=== PATIENT | male | born 1955 | race Caucasian/White ===

== ENCOUNTER → 2018-06-30 | Day surgery (SDC) | payer BC ==
[2018-06-28 16:33] LABS: BASOPHILS # (AUTO) 0.1 (0.0-0.1); BASOPHILS % 1.1 % (0.0-1.0); EOSINOPHILS # (AUTO) 0.2 (0.0-0.4); EOSINOPHILS % 2.3 % (0.0-6.0); HEMATOCRIT 40.7 % (38.2-49.6); HEMOGLOBIN 13.9 g/dL (14.0-18.0); LYMPHOCYTES # (AUTO) 2.5 (1.0-3.2); LYMPHOCYTES % 30.2 % (18.0-39.1); MEAN CORPUSCULAR HEMOGLOBIN 31.9 pg (28-32); MEAN CORPUSCULAR HGB CONC 34.2 g/dL (31-35); MEAN CORPUSCULAR VOLUME 93.3 fL (81-99); MONOCYTES # (AUTO) 0.6 (0.2-0.8); MONOCYTES % 7.3 % (4.4-11.3); NEUTROPHILS # (AUTO) 4.8 (2.1-6.9); NEUTROPHILS % 58.7 % (38.7-80.0); PLATELET COUNT 232 x10e3/uL (140-360); RED BLOOD COUNT 4.36 x10e6/uL (4.3-5.7); RED CELL DISTRIBUTION WIDTH 12.4 % (11.7-14.4)
[~2018-06-30] MED LIST: AMLODIPINE BESYL5 MG PO; ATORVASTATIN CA20 MG PO; DIOVAN160 MG PO; FENTANYL CITRATE/PF 100MCG/2 ML INJ ONE; FEXOFENADINE H180 MG; GLUCAGON FOR INJ 1 MG VIAL ONE; HCTZ; HYDROCODON-ACE1 EA12; HYOSCYAMINE SULFATE 0.5 MG/ML INJ ONE; IMODIUM2 MG PO; METOCLOPRAMIDE HCL 10 MG/2ML VIAL ONE; METOPROLOL; MIDAZOLAM HCL 2 MG/2 ML VIAL ONE; PROPOFOL IV EMULSION 10 MG/ML 20 ML VIAL ONE; SOTALOL80 MG PO; XARELTO10 MG
[2018-06-30 16:35] VITALS: BP 128/78
[2018-07-01 14:41] LABS: C DIFFICILE TOXIN A&B AMP PROB NEGATIVE (NEGATIVE)
[2018-07-01 15:18] LABS: WBC,FECAL (FECAL LACTOFERRIN) POSITIVE (NEGATIVE)
--- NOTE | 2018-08-21 15:17 | Operative Report ---
DATE OF PROCEDURE: June 30, 2018 REFERRING PHYSICIAN: Dr. Jodie Foreman. PROCEDURE PERFORMED: Esophagogastroduodenoscopy with biopsies and colonoscopy with polypectomy. INDICATIONS FOR ESOPHAGOGASTRODUODENOSCOPY: History of heartburn, indigestion. INDICATIONS FOR COLONOSCOPY: Colorectal cancer screening. MEDICATION: Patient was done under MAC. Please see anesthesiologist's note. PROCEDURE: With patient in left lateral decubitus position, a flexible fiberoptic Olympus gastroscope was introduced into the esophagus under direct visualization without any difficulty. There were some tongues of velvety red mucosa were noted to extend to a maximum 4 to 5 cm from the GE junction. Biopsies were obtained four quadrants q.2 cm. The scope was then advanced with ease into the stomach traversing a small hiatal hernia. Mucosa overlying the antrum revealed some patchy erythema and moderate edema and biopsies were obtained and sent to stain for H. pylori. There was some nodularity noted in the body of the stomach and biopsies were obtained. Pylorus appeared to be of normal contour and shape, was intubated with ease, and the scope was advanced all the way to the 2nd portion of the duodenum. It was then withdrawn slowly and there was some scalloping of some of the duodenal folds and biopsies were obtained to rule out sprue. The scope was then withdrawn back into the stomach and retroflexed and mucosa overlying the fundus and the cardia appeared to be within normal limits. The scope was then straightened out. It was subsequently withdrawn. Patient tolerated procedure well. IMPRESSIONS 1. Rule out Emanuel's esophagus. 2. Hiatal hernia. 3. Gastritis, biopsied. Biopsies sent to stain for Helicobacter pylori. 4. Rule out sprue. PLAN: Follow up histology. Initiate Protonix 40 mg 1 p.o. q.a.m. a.c. Patient was then turned around and after adequate lubrication of the anal canal, a flexible fiberoptic Olympus colonoscope was inserted into the rectum with ease and advanced all the way to the cecum. Approximately 1.3-cm sessile polyp was noted in the cecum and that was removed per snare electrocautery and the polypectomy site was hemoclipped. The ileocecal valve was intubated and the scope was advanced into the terminal ileum. Biopsies were obtained. The scope was then withdrawn slowly. Some minimal diverticulosis was noted in the ascending colon and some patchy inflammatory changes were noted in the left colon. Two polyps were snared from the transverse colon. One polyp was hot biopsied from the descending colon. Two polyps were snared. One polyp was hot biopsied in the sigmoid colon. Some diverticular disease was noted in the sigmoid colon and the scope was then retroflexed into the distal rectum and small internal hemorrhoids were noted, none of which was actively bleeding. The scope was then straightened out. It was subsequently withdrawn. Patient tolerated the procedure well. IMPRESSIONS 1. Cecal polyp, approximately 1.3 cm in size, sessile, removed per snare electrocautery and polypectomy site was hemoclipped. 2. Transverse colon polyps x2, snared. 3. Mild patchy colitis, random biopsies were obtained. 4. Descending colon polyp x1, hot biopsied. 5. Sigmoid colon polyps x3, two snared and one hot biopsied. 6. Diverticulosis. 7. Internal hemorrhoids, none actively bleeding. PLAN: Follow up histology. Follow up stool studies. Initiate VSL #3 one p.o. daily and Bentyl 10 mg 1 p.o. t.i.d. Patient might benefit from a followup colonoscopy in 1 to 2 years. Job#: [id number] TA cc:MELANIE FOREMAN M.D.,
== END | disposition home or self-care (01) ==
LOC: OR 12:25
PROVIDERS: ATTEND Internal Medicine Gastroenterology
DX: Z12.11 Encounter for screening for malignant neoplasm of colon (principal); K29.50 Unspecified chronic gastritis without bleeding; K44.9 Diaphragmatic hernia without obstruction or gangrene; K21.0 Gastro-esophageal reflux disease with esophagitis; K22.70 Barrett's esophagus without dysplasia; D12.0 Benign neoplasm of cecum; D12.3 Benign neoplasm of transverse colon; K63.5 Polyp of colon; D12.5 Benign neoplasm of sigmoid colon; I10 Essential (primary) hypertension; I25.10 Atherosclerotic heart disease of native coronary artery without angina pectoris; R78.5 Finding of other psychotropic drug in blood; Z95.0 Presence of cardiac pacemaker; Z86.73 Personal history of transient ischemic attack (TIA), and cerebral infarction without residual deficits; Z79.01 Long term (current) use of anticoagulants; K57.30 Diverticulosis of large intestine without perforation or abscess without bleeding; K64.8 Other hemorrhoids
CPT/HCPCS: 36415; 43239; 45384; 45385; 83630; 83993; 85025; 87045; 87177; 87328; 87493; 93005; J1610; J1980; J2250; J2704; J2765; 45378

== ENCOUNTER → 2019-08-05 | Outpatient (CLI) | payer BC, MEDICARE ==
[~2019-08-05] MED LIST changes: -FENTANYL CITRATE/PF 100MCG/2 ML INJ ONE; -GLUCAGON FOR INJ 1 MG VIAL ONE; -HYOSCYAMINE SULFATE 0.5 MG/ML INJ ONE; -METOCLOPRAMIDE HCL 10 MG/2ML VIAL ONE; -MIDAZOLAM HCL 2 MG/2 ML VIAL ONE; -PROPOFOL IV EMULSION 10 MG/ML 20 ML VIAL ONE
--- NOTE | 2019-08-05 17:42 | Diagnostic Imaging Report ---
Scrotal ultrasound, 08/05/2019 Clinical History: Spermatocele of the epididymis Discussion: Sonographic evaluation of the scrotal contents is performed. In addition, color Doppler and spectral waveform analysis evaluations of the scrotal contents are obtained. The testes have homogeneous echotexture, without focal mass. The right testis measures 0.9 x 2.5 x 3.5 cm. The left testis measures 5.0 x 2.6 x 3.7 cm. There is no varicocele or hydrocele. On color Doppler evaluation, there is symmetric blood flow to both testes. The right epididymis measures 1.3 x 1.1 x 1.4 cm and contains an anechoic 0.2 x 0.2 x 0.2 cm structure. The left epididymis measures 1.2 x 1.3 x 1.2 cm and appears unremarkable. Impression: 0.2 x 0.2 x 0.2 cm right epididymal cyst. Otherwise, unremarkable ultrasound of the scrotum and testicles. Signed by: Mike Rojo MD on 08/05/2019 5:38 PM
== END ==
LOC: US 16:30
PROVIDERS: ATTEND Urology
DX: N43.40 Spermatocele of epididymis, unspecified (principal)
CPT/HCPCS: 76870; 93976

== ENCOUNTER → 2019-08-17 | Day surgery (SDC) | payer BC, MEDICARE ==
[~2019-08-17] MED LIST changes: +FENTANYL CITRATE/PF 100MCG/2 ML INJ ONE; -FEXOFENADINE H180 MG; +FEXOFENADINE H180 MG PO; +HYOSCYAMINE 0.125 MG TAB ONE; +IMODIUM PO; +MIDAZOLAM HCL 5 MG/ML VIAL ONE; +PANTOPRAZOLE SO40 MG PO; +PROPOFOL IV EMULSION 10 MG/ML 20 ML VIAL ONE; -XARELTO10 MG; +XARELTO10 MG PO
--- NOTE | 2019-08-18 00:31 | Operative Report ---
DATE OF PROCEDURE: 08/17/2019 SURGEON: Tanner Márquez MD PROCEDURE: Colonoscopy with polypectomy. INDICATIONS FOR COLONOSCOPY: Surveillance colonoscopy, personal history of colon polyps. MEDICATIONS: The patient was done under MAC. Please see anesthesiologist's note. PROCEDURE IN DETAIL: With the patient in left lateral decubitus position, a flexible fiberoptic Olympus colonoscope was inserted into the rectum with ease and advanced all the way to the cecum. The scope was then withdrawn slowly and mucosa overlying the cecum grossly appeared to be within normal limits. Prep overall unfortunately was suboptimal with retained stools pretty much throughout the right colon and minimally in the left colon. One polyp was hot biopsied from the ascending colon. Diverticular disease was scattered throughout the colon, but was more prominent in the left colon. Whatever was visualized of the transverse colon grossly appeared to be within normal limits. Other than for diverticulosis whatever was visualized of the descending colon appeared to be within normal limits. Two polyps were hot biopsied from the sigmoid colon. One polyp was snared from the rectum, hot snared. The scope was then retroflexed into the distal rectum and small internal hemorrhoids were noted, none of which was actively bleeding. The scope was then straightened out. It was subsequently withdrawn. The patient tolerated the procedure well. IMPRESSION: 1. Suboptimal prep. 2. Ascending colon polyp, hot biopsied. 3. Diverticulosis. 4. Sigmoid colon polyps x2, hot biopsied. 5. Rectal polyp x1, hot snared. 6. Internal hemorrhoids, none actively bleeding. PLAN: Follow up histology. Initiate high-fiber, low-fat diet. Initiate high-fiber supplement. The patient might benefit from a followup colonoscopy in one year due to the suboptimal prep. Tanner Márquez MD [facility] [place] /[id number]
--- OUTSIDE RECORDS SUMMARY | 2019-08-23 12:03 | XMS REPORT | Encounter Summary ---
Author Organization Unknown Address [address] [place] [address] Phone [phone] Care Team Providers Care Data Communications Software Consultant Name Role Phone Dr. Goran Raymond 3 [phone] Dr. Nayeli Foreman 3 [phone] Nayeli Foreman MD 3 [phone] Oscar Montiel MD 82 [phone] Tanner Márquez MD 107 [phone] Reason for Visit other - see typed reason Instructions 1. Increased stress 2. Body mass index 20-24 - normal 3. Influenza vaccination declined 4. Hypertensive disorder triamterene 37.5 mg-hydrochlorothiazide 25 mg tablet CBC w/ auto diff TSH, serum or plasma 5. Emanuel's esophagus gastroenterology referral - *Please call the patient and make an appointment* PLEASE SEND BACK CONSULT NOTES TO [phone] 6. Polyp of colon 7. Atrial fibrillation cardiology referral - *Please call the patient and make an appointment* PLEASE SEND BACK CONSULT NOTES TO [phone] 8. History of myocardial infarction lipid panel, serum 9. Tobacco user stopping smoking: care instructions 10. Screening for disorder PSA, serum or plasma 11. Pain in testicle urology referral - *Please call the patient and make an appointment* PLEASE SEND BACK CONSULT NOTES TO [phone] Discussion Note: None recorded. Plan of Care Reminders Provider Appointments None recorded. Lab CBC W/ Auto Diff 09/12/2019 [facility] TSH, Serum or Plasma 09/12/2019 [facility] Lipid Panel, Serum 09/12/2019 [facility] PSA, Serum or Plasma 09/12/2019 [facility] Referral Gastroenterology Referral 06/14/2019 Tanner Márquez MD Cardiology Referral 06/14/2019 Oscar Montiel MD Urology Referral 06/14/2019 Aidan Montgomery MD Procedures None recorded. Surgeries None recorded. Imaging None recorded. Medications Name Start Date amlodipine 5 mg tablet TAKE ONE TABLET BY MOUTH ONCE A DAY atorvastatin 40 mg tablet TAKE ONE TABLET BY MOUTH ONCE A DAY bupropion HCl 150 mg tablet,12 hr sustained-release(smoking deterrent) Take 1 tablet twice a day by oral route. Cialis 5 mg tablet Take 1 tablet every day by oral route as needed. fexofenadine 180 mg tablet Take 1 tablet every day by oral route. hydrocodone 7.5 mg-acetaminophen 325 mg tablet Take 1 tablet every 6-8 hours by oral route as needed. nicotine 14 mg/24 hr daily transdermal patch Apply 1 patch every day by transdermal route. nicotine 21 mg/24 hr daily transdermal patch Apply 1 patch every day by transdermal route. nicotine 21 mg/24hr pt24 pantoprazole 40 mg tablet,delayed release TAKE ONE TABLET BY MOUTH ONCE A DAY sotalol 80 mg tablet TAKE ONE TABLET BY MOUTH TWICE A DAY terbinafine HCl 250 mg tablet Take 1 tablet every day by oral route. triamcinolone acetonide 0.1 % topical cream APPLY A THIN LAYER TO THE AFFECTED AREA(S) BY TOPICAL ROUTE 2 TIMES PER DAY triamterene 37.5 mg-hydrochlorothiazide 25 mg tablet TAKE ONE TABLET BY MOUTH DAILY Xarelto 20 mg tablet TAKE ONE TABLET BY MOUTH ONCE A DAY Medications Administered None recorded. Vitals Height Weight BMI Blood Pressure 6 ft 1.5 in 185 lbs 24.1 kg/m2 130/80 mm[Hg] Results Lab Results None recorded. Allergies Code Code System Name Reaction Severity Status Onset NKDA Problems Name Status Onset Date Source History of Myocardial Infarction Active 09/04/2014 Tobacco User Active 02/08/2017 Hypertensive Disorder Active 02/08/2017 Diarrhea Active 02/08/2017 Cardiac Pacemaker in Situ Active 02/08/2017 Chronic Pain Syndrome Active 07/02/2017 Basal Cell Carcinoma of Skin Active 07/08/2017 Polyp of Colon Active 08/03/2018 Atrial Fibrillation Active 08/03/2018 Emanuel's Esophagus Active 08/03/2018 History of Cerebrovascular Accident Active 05/23/2019 Procedures Date Name Performed by 06/30/2018 Esophagogastroduodenoscopy Information not available 09/04/2009 Pacemaker Information not available Colonoscopy Information not available Vaccine List Vaccine Type pneumococcal conjugate PCV 13 10/05/20180.5 mL Tdap 01/02/2011 Social History Tobacco Smoking Status Heavy Tobacco Smoker (1 /2 PPD) Past Encounters 06/14/2019 Increased Stress; Body Mass Index 20-24 - Normal; Influenza Vaccination Declined; Hypertensive Disorder; Emanuel's Esophagus; Polyp of Colon; Atrial Fibrillation; History of Myocardial Infarction; Tobacco User; Screening for Disorder; Pain in Testicle Nayeli Foreman MD: [id number] [place] [address], Ph. History of Present Illness Note:63yo male presents for follow-up visit. Is going through tough time with - currently . Pt living in travel trailer behind house. Worried that his cheated on him with her cousin. Has been going to counselor, Douglas Smith & goes again this afternoon at 1pm.<div>Here today with reminder from Dr Tanner Márquez for Emanuel's esophagus.</div><div>Currently working in [employer].</div><div>Home blood pressures in 118/70 range. Has pacemaker since 2009 for SSS. Taking half a tablet for Dyazide - whole tablet causes leg cramping.</div><div>Smoking 2ppd currently with stress of marriage. Quit drinking 3wks ago.</div>
Previously:
Pt with hx of WA, CVA, afib, pacemaker, hx of PE, Emanuel's esophagus, colon polyps, htn, BCC.<div>Reviewed results of LDCT from 12/28/18 - incidental 2.6cm HARINI bulla
</div><div>Printed & reviewed results of US kidney from 04/24/19 with multiple simple cysts up to 9.0cm in bilateral kidneys.</div><div>
</div><div>Again long discussion with pt & regarding smoking cessation. Pt tried Chantix, but was unable to sleep well on it - woke every 2hrs. Currently smoking 2ppd. Has chronic cough productive of sputum in morning. 70-pk-yr smoking hx</div><div>Older brother from lung cancer earlier this year. He lived with pt & his for 38days on hospice.
</div><div><div>Pt notes that he has been a heavy smoker for years. Smoked less when he was younger & working 1/2ppd for 20yrs, but heavier after new job 1-1.5ppd. does not smoke. Has smoked since late teens (38yrs)</div><div>
</div><div>Had EGD/colonoscopy on Monday06/30/[address] Márquez, GI. Had six polyps removed & was told he had diverticulosis. Was found to have Emanuel's esophagus & had biopsies taken. Also with hiatal hernia.
</div><div><div>Pt already taking PPI, Protonix 40mg qd for GERD.</div>
<div>Is followed by cardiology, Dr. Montiel - last visit in February 2018. Pt's bp was noted to be high, so Dr. Montiel restarted amlodipine 5mg qd in addition to sotalol 80mg bid and atorvastatin 40mg qhs.
</div><div><div>Pt with hx of atrial fibrillation, pacemaker and has chronic anticoagulation after PE in 1993 following hip surgery. Is currently on Xarelto 20mg qd. Sees Dr. Montiel 1-2x/yr.</div><div>Has hx of WA & CVA in November 2014. No stent or CABG.</div><div>
</div><div>Followed by dermatology & had basal cell carcinoma removed from left forearm on Jun 20, 2017 and another basal cell carcinoma removed from left face (cheek) on Monday, Jul 03 with Moh's surgery. Derm is Dr. Avalos.
</div><div>
</div><div> Hx htn - on medication for past 10yrs. Was on amlodipine, valsartan/hctz & sotalol. Saw physical therapy nurse in February & discontinued amlodipine & valsartan/hctz. Currently only taking the sotalol 80mg bid, Xarelto 20mg qhs & atorvastatin 40mg qhs.</div><div>
</div><div>PMHx:</div><div>Hx htn - Currently on sotalol 80mg bid, Xarelto 20mg qhs</div><div>
</div><div>Hx of pacemaker - 2009 for sick sinus syndrome. On sotalol. First PM lasted 8 yrs from 0329-0651. Followed by cardiology, Dr. Chiquita Montiel - has pacemaker. Hx WA in 2014 no CABG or stent.
</div><div>
</div><div>Hx of WA & CVA (10/19/14) in November 2014. Has been on Xarelto ever since. Followed by cardiology, Dr. Florin Montiel every 3- 4mo. </div><div>
</div><div>Hx broken left hip 1991, developed blood clots & amp; pulmonary emboli, on blood thinners 8-9mo.
</div><div>
</div><div>Hx of allergies & sinus congestion - on fexofenadine 180mg qd.
</div><div>< br></div><div>Hx right knee, left hip, & right shoulder pain. Had cortisone injection to knee in past by ortho in 2011. Takes hydrocodone for pain relief.< /div></div></div></div> Review of Systems:ROS as noted in the HPI Review of Systems Comprehensive General Adult ROS Reported By: Patient Constitutional: Constitutional: no fever Eyes: Eyes: no vision change Cardiovascular: Cardiovascular: no chest pain Respiratory: Respiratory: no wheezing, no shortness of breath, cough Gastrointestinal: Gastrointestinal: no abdominal pain Musculoskeletal: Musculoskeletal: back pain Integumentary: Skin: growths/lesions; well-healed surgical scars on left face & left arm Neurologic: Neurologic: no loss of consciousness, no headaches Psychiatric: Psych: no depression, no alcohol abuse, no anxiety, no suicidal thoughts Physical Exam General Adult Exam (male), Upper Respiratory Infection Exam Comprehensive Reported By: Patient Constitutional: General Appearance: healthy-appearing, well-nourished, well-developed. Level of Distress: NAD. Ambulation: ambulating normally Psychiatric: Mental Status: active and alert, normal mood, normal affect Neck: Neck: supple, trachea midline. Thyroid: no enlargement, non-tender Lungs: Auscultation: breath sounds normal, no wheezing, no rales/crackles Cardiovascular: Heart Auscultation: RRR, normal S1, normal S2, no murmurs. Neck vessels: no carotid bruits Abdomen: Bowel Sounds: normal. Inspection and Palpation: soft Musculoskeletal:: Joints, Bones, and Muscles: normal movement of all extremities. Extremities: edema Neurologic: Gait and Station: normal gait Skin: Inspection and palpation: no lesions; 5cm scar from Moh's surgery on left face/cheek. Healing lesion on left forearm from BCC removal. Nails: abnormal; onychomycosis of great toenails
--- OUTSIDE RECORDS SUMMARY | 2019-08-23 12:03 | XMS REPORT | Encounter Summary ---
Author Organization Unknown Address [address] [place] [address] Phone [phone] Care Team Providers Care Financial Systems Manager Name Role Phone Dr. Goran Raymond 3 [phone] Dr. Nayeli Foreman 3 [phone] Nayeli Foreman MD 3 [phone] Oscar Montiel MD 82 [phone] Tanner Márquez MD 107 [phone] Reason for Visit Bilateral nail fungus Instructions 1. Nicotine dependence stopping smoking: care instructions advised to quit smoking deciding about using medicines to quit smoking smoking cessation counseling, 3-10 minutes nicotine 21 mg/24 hr daily transdermal patch bupropion HCl 150 mg tablet,12 hr sustained-release(smoking deterrent) nicotine 14 mg/24 hr daily transdermal patch 2. Influenza vaccination 3. Body mass index 25-29 - overweight learning about healthy weight 4. Overweight 5. Atrial fibrillation 6. Hypertensive disorder Discussion Note: None recorded. Plan of Care Reminders Provider Appointments Est Patient 06/07/2019 11:00AM Nayeli Foreman MD Lab None recorded. Referral None recorded. Procedures None recorded. Surgeries None recorded. Imaging [...] 1 patch every day by transdermal route. pantoprazole 40 mg tablet,delayed release TAKE ONE [...] BMI Blood Pressure 6 ft 1.5 in 194 lbs 25.2 kg/m2 138/80 mm[Hg] Lab Results None recorded. Allergies Code Code System Name Reaction Severity Status Onset NKDA Problems Name Status Onset Date Source Tobacco User Active 02/08/2017 Hypertensive Disorder Active 02/08/2017 Myocardial Infarction Active 02/08/2017 Cerebrovascular Accident Active 02/08/2017 Diarrhea Active 02/08/2017 Cardiac Pacemaker in Situ Active 02/08/2017 Chronic Pain Syndrome Active 07/02/2017 Basal Cell Carcinoma of Skin Active 07/08/2017 Polyp of Colon Active 08/03/2018 Atrial Fibrillation Active 08/03/2018 Emanuel's Esophagus Active 08/03/2018 Procedures Date Name Performed by 06/30/2018 Esophagogastroduodenoscopy Information not available 09/04/2009 Pacemaker Information not available Colonoscopy Information not available 04/22/2019 US, Kidney [facility] [address] [place] [address] (Work Place) Vaccine List Vaccine Type pneumococcal conjugate PCV 13 10/05/20180.5 mL Tdap 01/02/2011 Social History Tobacco Smoking Status Heavy Tobacco Smoker (1 09/05 PPD) Past Encounters 05/07/2019 Nicotine Dependence; Influenza Vaccination; Body Mass Index 25-29 - Overweight; Overweight; Atrial Fibrillation; Hypertensive Disorder Nayeli Foreman MD: [address] [place] [address], Ph. History of Present Illness Note:63yo male with hx of MS, CVA, afib, pacemaker, hx of PE, Emanuel's esophagus, colon polyps, htn, BCC, presents for follow-up visit. Here with . <div>Since last visit, pt has been working out of state for job. Worked in both [place] & [place]
</div><div>Needs refill of oral Lamisil for right great toenail. Has been out of medication for past month or so. Took six months of tx. </div><div>
</div><div>Reviewed results of LDCT from 12/28/18 - incidental 2.6cm HARINI bulla</div><div>Printed & reviewed results of US kidney from 04/24/19 with multiple simple cysts up to 9.0cm in bilateral kidneys.</div><div>< br></div><div>Again long discussion with pt & regarding smoking cessation. Pt tried Chantix, but was unable to sleep well on it - woke every 2hrs. Currently smoking 2ppd. Has chronic cough productive of sputum in morning. 70-pk-yr smoking hx</div><div>Older brother from lung cancer earlier this year. He lived with pt & his for 38days on hospice.
< /div><div><div>Pt notes that he has been a heavy smoker for years. Smoked less when he was younger & working 1/2ppd for 20yrs, but heavier after new job 1- 1.5ppd. does not smoke. Has smoked since late teens (38yrs)</div><div><div> Pt without c/o today. No SOB or CP. No Lightheadedness. Patient is taking medici ne consistently. Not having any issues with them. </div> </div><div>Previously:< br></div><div><div><span style="font-size: 14px;">Had EGD/colonoscopy on Monday06/30/[address] Márquez GI. Was started on Bentyl </span>10mg<span style="font-size: 14px;"> tid & probiotic (VSL#3) qd. Had six polyps removed & was told he had diverticulosis. Was found to have Emanuel's esophagus & amp; had biopsies taken. Also with hiatal hernia.</span>
</div><div><div>Pt already taking PPI, Protonix 40mg qd for GERD.</div>
<div>Also would like tx for bilateral great toenails - thickened, yellow, broken, black on right for past 2-3yrs. Has been on oral Lamisil for 3mo - normal LFTs after one month of tx.</div><div>
</div><div><div><span style="font-size: 14px;">Is followed by cardiology, Dr. Montiel - last visit in February 2018. Pt's bp was noted to be high, so Dr. Montiel restarted amlodipine </span>5mg<span style="font-size: 14px;"> qd in addition to sotalol </span>80mg<span style="font-size: 14px;"> bid and atorvastatin </span>40mg<span style="font-size: 14px;"> qhs.</span>
</div>< div>Pt with hx of atrial fibrillation, pacemaker and has chronic anticoagulation after PE in 1993 following hip surgery. Is currently on Xarelto 20mg qd. Sees Dr. Montiel 1-2x/yr.</div><div>Has hx of MS & CVA in November 2014. No stent or CABG.</div><div>
</div><div>Right knee pain, left hip (broken femoral neck - 4 screws placed in 1993 - had PE/DVT afterwards), right shoulder pain (rotator cuff repair in 2001- got infected & required second surgery). Orthopedic, Dr. Lan Guzman or Dr. Kaiser Carreno
</div><div>Pain management was Dr. Gaspar who moved out of area, then Dr. Antoine.</div><div>
</div><div>Followed by dermatology & had basal cell carcinoma removed from left forearm on Jun 20, 2017 and another basal cell carcinoma removed from left face (cheek) on Monday, Jul 03 with Moh's surgery. Derm is Dr. Avalos.</div><div>
</div><div> Hx htn - on medication for past 10yrs. Was on amlodipine, valsartan/hctz & sotalol. Saw manager of manufacturing in February & discontinued amlodipine & valsartan/hctz. Currently only taking the sotalol 80mg bid, Xarelto 20mg qhs & amp; atorvastatin 40mg qhs.</div><div>
</div><div>PMHx:</div><div>Hx htn - Currently on sotalol 80mg bid, Xarelto 20mg qhs</div><div>
</div><div>Hx of pacemaker - 2009 for sick sinus syndrome. On sotalol. First PM lasted 8 yrs from 9959-8165. Followed by cardiology, Dr. Chiquita Montiel - has pacemaker. Hx MS in 2014 no CABG or stent.
</div><div>
</div><div>Hx of MS & CVA (10/19/14) in November 2014. Has been on Xarelto ever since. Followed by cardiology, Dr. Florin Montiel every 3-4mo. </div><div>
</div><div>Hx broken left hip 1991, developed blood clots & pulmonary emboli, on blood thinners 8-9mo.
</div ><div>
</div><div>Hx of allergies & sinus congestion - on fexofenadine 180mg qd.
</div><div>
</div><div>Hx right knee, left hip, & right shoulder pain. Had cortisone injection to knee in past by ortho in 2011. Takes hydrocodone for pain relief.</div></div></div></div></div> Review of Systems:ROS as noted in the HPI Review of Systems Comprehensive General Adult ROS Reported By: Patient Constitutional: Constitutional: no fever Eyes: Eyes: no vision change Cardiovascular: Cardiovascular: no chest pain Respiratory: Respiratory: no wheezing, no shortness of breath, cough Gastrointestinal: Gastrointestinal: no abdominal pain Musculoskeletal: Musculoskeletal: back pain Integumentary: Skin: growths/lesions; well-healing surgical scars on left face & left [...]
--- OUTSIDE RECORDS SUMMARY | 2019-08-23 12:03 | XMS REPORT ---
Author [facility] Address Unknown Phone Unavailable Care Team Providers Care Engagement Mgr Name Role Phone CHASIDY MARSHALL Unavailable Unavailable Problems This patient has no known problems. Allergies, Adverse Reactions, Alerts This patient has no known allergies or adverse reactions. Medications This patient has no known medications. Results Test Description Test Time Test Comments Text Results Atomic Results Result Comments US TESTICULAR 2019-08-05 17:35:00 [place] [id number] Patient Name: INESSA JENKINS MR #: [id number] : 1955 Age/Sex: 64/M Req #: [id number] [facility] Physician: Ordered by: CHASIDY MARSHALL MD Report #: [id number] Location: Room/Bed: Procedure: [id number] US/US TESTICULAR Exam Date: 08/05/19 Exam Time: 1655 REPORT STATUS: Signed Scrotal ultrasound, 08/05/2019 Clinical History: Sper matocele of the epididymis Discussion: Sonographic evaluation of the scrotal contents is performed. In addition, color Doppler and spectral waveform analysis evaluations of the scrotal contents are obtained. The testes have homogeneous echotexture, without focal mass. The right testis measures 0.9 x 2.5 x 3.5 cm. The left testis measures 5.0 x 2.6 x 3.7 cm. There is no varicocele or hydrocele. On color Doppler evaluation, there is symmetric blood flow to both testes. The right epididymis measures 1.3 x 1.1 x 1.4 cm and contains an anechoic 0.2 x 0.2 x 0.2 cm structure. The left epididymis measures 1.2 x 1.3 x 1.2 cm and appears unremarkable. Impression: 0.2 x 0.2 x 0.2 cm right epididymal cyst. Otherwise, unremarkable ultrasound of the scrotum and testicles. Signed by: Mike Emerson MD on 08/05/2019 5:38 PM Dictated By: MIKE EMERSON MD [id number] Transcribed By: JENNIFER on 08/12/19 1200 COPY TO: CHASIDY MARSHALL MD US TESTICULAR DOPPLER LTD 2019-08-05 17:35:00 [place] [id number] Patient Name: INESSA JENKINS MR #: [id number] : 1955 Age/Sex: 64/M Req #: [id number] Adm Physician: Ordered by: CHASIDY MARSHALL MD Report #: [id number] Location: Room/Bed: Procedure: [id number] US/US TESTICULAR DOPPLER LTD Exam Date: 08/05/19 Exam Time: 1655 REPORT STATUS: Signed Scrotal ultrasound, 08/05/2019 Clinical History: Spermatocele of the epididymis Discussion: Sonographic evaluation of the scrotal contents is performed. In addition, color Doppler and spectral waveform analysis evaluations of the scrotal contents are obtained. The testes have homogeneous echotexture, without focal mass. The right testis measures 0.9 x 2.5 x 3.5 cm. The left testis measures 5.0 x 2.6 x 3.7 cm. There is no varicocele or hydrocele. On color Doppler evaluation, there is symmetric blood flow to both testes. The right epididymis measures 1.3 x 1.1 x 1.4 cm and contains an anechoic 0.2 x 0.2 x 0.2 cm structure. The left epididymis measures 1.2 x 1.3 x 1.2 cm and appears unremarkable. Impression: 0.2 x 0.2 x 0.2 cm right epididymal cyst. Otherwise, unremarkable ultrasound of the scrotum and testicles. Signed by: Mike Emerson MD on 08/05/2019 5:38 PM Dictated By: MIKE EMERSON MD 1203 Transcribed By: JENNIFER on 08/12/19 1206 COPY TO: CHASIDY MARSHALL MD
--- OUTSIDE RECORDS SUMMARY | 2019-08-23 12:03 | XMS REPORT | Encounter Summary ---
Author Organization Unknown Address [address] [place] [address] Phone [phone] Care Team Providers Care Horticultural Services Supervisor Name Role Phone Dr. Goran Raymond 3 [phone] Dr. Nayeli Foreman 3 [phone] Nayeli Foreman MD 3 [phone] Oscar Montiel MD 82 [phone] Tanner Márquez MD 107 [phone] Reason for Visit Right toe problem; Annual Alcohol Misuse Screening; Tobacco Cessation Counseling; cough Instructions 1. Nicotine dependence stopping smoking: care instructions advised to quit smoking deciding about using medicines to quit smoking LDCT, chest, for lung cancer screening - PLEASE CALL PATIENT AND SCHEDULE HIM AN APPOINTMENT. 2. Pruritic rash triamcinolone acetonide 0.1 % topical cream 3. Onychomycosis of toenails CMP, serum or plasma terbinafine HCl 250 mg tablet 4. Productive cough 5. Body mass index 20-24 - normal 6. Alcohol consumption screening learning about alcohol misuse Discussion Note: None recorded. Plan of Care Patient Goals Patient Target Smoking - How much? 1 PPD Smoking - How much? 1/2 PPD Quitting smoking is important for your health, both in the long-term and the short- term. Quitting smoking can reduce your risk of being diagnosed with life- threatening diseases such as emphysema, cancer and heart disease. Short Term Goals (between now and follow-up appointment): Cut number of cigarettes smoked daily in half Identify smoking triggers Find strategies that help reduce cravings Detention Goals: Fully and permanently quit smoking Improve lung function Reduce health risks by quitting smoking What can increase my chances of success for quitting smoking? Regular exercise Chew gum or hard candy Identify triggers that lead to smoking, and establish new strategies for coping with these situations Keep yourself busy Contact additional resources for support, such as [employer] Don't give up, even if you have a setback How can my healthcare team support me in quitting smoking? Follow up visits to assess progress Identify resources available to help you quit smoking Consider medication to increase your chances of successfully quitting smoking Referral to counseling for additional support Patient Instructions Quitting Tobacco Goals Quitting smoking is important for your health, but it is hard to do. We agreed to the following goals towards reducing your tobacco habits: Today we talked about how you are thinking about quitting smoking, but not ready yet. Since you want to smoke less, but are not ready to quit yet, we agreed that by your next appointment, you would smoke one less cigarette each day. Since your ready to quit smoking, we agreed that you would smoke your last cigarette on . Detention Goals: *Permanently quit smoking *Improve lung function *Reduce my risk of getting emphysema, cancer and heart disease What can increase my chances of success for quitting smoking? *Regular exercise *Chew gum or hard candy *Identify triggers that lead to smoking, and establish new strategies for coping with these situations *Keep yourself busy *Contact additional resources for support, such as [employer] *Don't give up, even if you have a setback How can my healthcare team support me in quitting smoking? *Follow up visits to assess progress *Identify resources available to help you quit smoking *Consider medication to increase your chances of successfully quitting smoking *Referral to counseling for additional support Reminders Provider Appointments None recorded. Lab CMP, Serum or Plasma 12/28/2018 [facility] Laboratory Referral None recorded. Procedures None recorded. Surgeries None recorded. Imaging LDCT, Chest, for Lung Cancer Screening 12/28/2018 [facility] [place] Medications Name Start Date amlodipine 5 mg tablet TAKE ONE TABLET BY MOUTH ONCE A DAY atorvastatin 40 mg tablet TAKE ONE TABLET BY MOUTH ONCE A DAY Cialis 5 mg tablet Take 1 tablet every day by oral route as needed. fexofenadine 180 mg tablet Take 1 tablet every day by oral route. [place] 7.5 mg-325 mg tablet Take 1 tablet every 6-8 hours by oral route as needed. pantoprazole 40 mg tablet,delayed release TAKE ONE [...] BMI Blood Pressure 6 ft 1.5 in 186.4 lbs 24.3 kg/m2 132/72 mm[Hg] Lab Results None recorded. Allergies Code [...] Performed by 06/30/2018 Esophagogastroduodenoscopy Information not available 06/30/2018 Colonoscopy Information not available 09/04/2009 Pacemaker Information not available 12/28/2018 LDCT, Chest, for Lung Cancer Screening [facility] [address] [place] [address] (Work Place) Vaccine List Vaccine Type pneumococcal conjugate PCV 13 10/05/20180.5 mL Tdap 01/02/2011 Social History Smoking Status Heavy Tobacco Smoker (1 1/2 PPD) Past Encounters 12/28/2018 Nicotine Dependence; Pruritic Rash; Onychomycosis of Toenails; Productive Cough; Body Mass Index 20-24 - Normal; Alcohol Consumption Screening Nayeli Foreman MD: [address] [place] [address], Ph. History of Present Illness Note:63yo male with hx of [place], CVA, afib, pacemaker, hx of PE, Emanuel's esophagus, colon polyps, htn, BCC, presents for follow-up visit. Last visit 10/05/18 for AWV. Here today for medication refill of triamcinolone 0.1% cream to use on itchy rash on left buttock. Also with right great toenail injury, has been on Lamisil for past three months since last visit on 10/05/18.<div>Is leaving in a week for work project in [place], [place] for two months. Will be back in [place] at end of February. </div><div>Smoking- Would be interested in LDCT chest. Has not tried Chantix yet. Has chronic cough productive of sputum in morning. 70-pk-yr smoking hx. Still smoking about 1ppd on average.</div><div>Older brother from lung cancer earlier this year. He lived with pt & his for 38days on hospice.</div><div>Pt notes that he has been a heavy smoker for years. Smoked less when he was younger & working 1/2ppd for 20yrs, but heavier after new job 1-1.5ppd. Estimates about 30pack-year hx. Has Rx for Chantix, but hasn't tried it. does not smoke. </div><div><div>Pt without c/o today. No SOB or CP. No Lightheadedness. Patient is taking medicine consistently. Not having any issues with them. </div> </div><div>Previously:
</div><div><div><span style="font-size: 14px;">Had EGD/colonoscopy on Monday06/30/[address] Márquez, GI. Was started on Bentyl </span>10mg<span style="font- size: 14px;"> tid & probiotic (VSL#3) qd. Had six polyps removed & was told he had diverticulosis. Was found to have Emanuel's esophagus & had biopsies taken. Also with hiatal hernia.</span>
</div><div><div>Pt already taking PPI, Protonix 40mg qd for GERD.</div>
<div>Also would like tx for bilateral great toenails - thickened, yellow, broken, black on right for past 2- 3yrs. Has been on oral Lamisil for 3mo - normal LFTs after one month of tx.</div ><div>
</div><div><div><span style="font-size: 14px;">Is followed by cardiology, Dr. [...] qd. Sees Dr. Montiel 1-2x/yr.</div><div>Has hx of [place] & CVA in November 2014. No stent or CABG.</div><div>
</div><div>Still smoking 2ppd. Has smoked since late teens (38yrs). Has picked up Chantix, but not started it. </div><div>Has been having some erectile dysfunction. </div><div>
</div><div>Right knee pain, left hip (broken femoral [...] 03 with Moh's surgery. Derm is Dr. Avalos.</div ><div>
</div><div> Hx htn - on medication for past 10yrs. Was on amlodipine, valsartan/hctz & sotalol. Saw box spring upholsterer in February & discontinued amlodipine & valsartan/hctz. Currently only taking the sotalol 80bid, Xarelto 20mg qhs & atorvastatin</div><div>
</div><div>PMHx:</div><div>Hx htn - Currently on sotalol 80mg bid, Xarelto 20mg qhs</div><div>
</div><div> Hx of pacemaker - 2009 for sick sinus syndrome. On sotalol. First PM lasted 8 yr s from 0677-1808. Followed by cardiology, Dr. Chiquita Montiel - has pacemaker. Hx M I in 2014 no CABG or stent.
</div><div>
</div><div>Hx of [place] & CVA (10/19/14) in November 2014. Has been on Xarelto ever since. Followed by cardiology, Dr. Florin Montiel every 3-4mo. Last echo in November 2016 - valve leakage, but pumping function good. TMET 03/2016 with nuclear imaging.
</div><div>
</div ><div>Hx broken left hip 1991, developed blood clots & pulmonary emboli, on blood thinners 8-9mo.
</div><div>
</div><div>Hx of allergies & sinus congestion - on fexofenadine 180mg qd.
</div><div>
</div><div>Hx right knee, left hip, & right shoulder pain. Had cortisone injection to knee in past by ortho in 2011. Takes hydrocodone for pain relief.
</div><div>
< /div><div>No new complaints. No chest pain, shortness of breath, lightheadedness, headache.</div></div></div></div> Review of Systems:ROS as noted in the [...]
--- OUTSIDE RECORDS SUMMARY | 2019-08-23 12:03 | XMS REPORT | Encounter Summary ---
Author Organization Unknown Address [address] [place] [address] Phone [phone] Care Team Providers Care Wire Mesh Gate Assembler Name Role Phone Dr. Nayeli Foreman 3 [phone] Dr. Goran Raymond 3 [phone] Nayeli Foreman MD 3 [phone] Oscar Montiel MD 82 [phone] Tanner Márquez MD 107 [phone] Reason for Visit AWV Annual Wellness Visit Male (VFP) Instructions 1. Adult health examination 2. Tobacco user stopping smoking: care instructions 3. Chronic pain syndrome hydrocodone 7.5 mg-acetaminophen 300 mg tablet 4. Atrial fibrillation Xarelto 20 mg tablet 5. Cardiac pacemaker in situ 6. Cerebrovascular accident 7. Advance directive discussed with patient advance care planning: care instructions 8. Depression screening 9. Body mass index 20-24 - normal 10. Immunization Prevnar 13 (PF) 0.5 mL intramuscular syringe 11. Basal cell carcinoma of skin 12. Hypertensive disorder amlodipine 5 mg tablet sotalol 80 mg tablet triamterene 37.5 mg-hydrochlorothiazide 25 mg tablet 13. Emanuel's esophagus 14. Polyp of colon 15. Acid reflux pantoprazole 40 mg tablet,delayed release 16. Onychomycosis of toenails terbinafine HCl 250 mg tablet 17. Myocardial infarction 18. Hyperlipidemia learning about healthy weight atorvastatin 40 mg tablet high cholesterol: care instructions 19. Nicotine dependence stopping smoking: care instructions advised to quit smoking deciding about using medicines to quit smoking Discussion Note: None recorded. Plan of Care Patient Goals Patient Target Smoking - How much? 1 PPD Smoking - How much? None Quitting smoking is important for your health, both in the long-term and the short- term. Quitting smoking can reduce your risk of being diagnosed with life- threatening diseases such as emphysema, cancer and heart disease. Short Term Goals (between now and follow-up appointment): Cut number of cigarettes smoked daily in half Identify smoking triggers Find strategies that help reduce cravings Senior Living Goals: Fully and permanently quit smoking Improve lung function Reduce health risks by quitting smoking What can increase my chances of success for quitting smoking? Regular exercise Chew gum or hard candy Identify triggers that lead to smoking, and establish new strategies for coping with these situations Keep yourself busy Contact additional resources for support, such as [employer] Don't give up, even if you have a setback How can my healthcare team support me in quitting smoking? Follow up visits to assess progress Identify resources available to help you quit smoking Consider medication to increase your chances of successfully quitting smoking Referral to counseling for additional support Patient Instructions It was good to see you in the office today for your Medicare Annual Wellness Visit. You have been provided some information on healthy nutrition, including a diet rich in fruits and vegetables, minimizing simple carbohydrates, salt, and saturated fats. I want to encourage regular cardiovascular exercise such as walking at least 30 minutes daily, 5 times per week. Please remember to schedule any preventive health measures that we talked about today. You have also been provided education on fall prevention and community- based lifestyle interventions to help reduce health risks and promote healthy living in your Annual Wellness folder. Screening Recommendations 1. Vaccines Pneumococcal: Ordered Influenza: Next Fall Shingles: discussed today and information sent with patient in their Annual Wellness health folder Tetanus: Your next one in: 2020 2. Prostate Screening: discussed today and information sent with patient in their Annual Wellness health folder 3. Colorectal cancer Screening Colonoscopy: Your next one in 06/30/2021 Dr Márquez Fecal Occult Blood: discussed today and information sent with patient in their Annual Wellness health folder 4. Bone Mass Measurement: discussed today 5. Eye Exam Screening: Ordered 6. Cholesterol Screening: Your next lipid panel in:04/2019 7. Diabetes Screening: Your next check in: 04/2019 Reminders Provider Appointments Est Patient 11/30/2018 4:00PM Nayeli Foreman MD Lab None recorded. Referral [...] day by oral route. hydrocodone 7.5 mg-acetaminophen 300 mg tablet Take 1 tablet every 6-8 hours by oral route as needed for 90 days. pantoprazole 40 mg tablet,delayed release TAKE ONE TABLET BY MOUTH ONCE A DAY sotalol 80 mg tablet TAKE ONE TABLET BY MOUTH TWICE A DAY terbinafine HCl 250 mg tablet Take 1 tablet every day by oral route. triamterene 37.5 mg-hydrochlorothiazide 25 mg tablet TAKE ONE TABLET BY MOUTH DAILY Xarelto 20 mg tablet TAKE ONE TABLET BY MOUTH ONCE A DAY Medications Administered None recorded. Vitals Height Weight BMI Blood Pressure 6 ft 1 in 187 lbs 24.7 kg/m2 120/80 mm[Hg] Lab Results None recorded. Allergies Code [...] not available 09/04/2009 Pacemaker Information not available Vaccine List Vaccine Type pneumococcal conjugate PCV 13 10/05/20180.5 mL Tdap 01/02/2011 Social History Smoking Status Heavy Tobacco Smoker (1 1/2 PPD) Past Encounters 10/05/2018 Adult Health Examination; Tobacco User; Chronic Pain Syndrome; Atrial Fibrillation; Cardiac Pacemaker in Situ; Cerebrovascular Accident; Advance Directive Discussed with Patient; Depression Screening; Body Mass Index 20-24 - Normal; Immunization; Basal Cell Carcinoma of Skin; Hypertensive Disorder; Emanuel's Esophagus; Polyp of Colon; Acid Reflux; Onychomycosis of Toenails; Myocardial Infarction; Hyperlipidemia; Nicotine Dependence Nayeli Foreman MD: [address] [place] [phone], Ph. History of Present Illness Mini Cog Reported By: Patient Functional Ability: Personal/Social/ Draw a clock and write in the numbers in the correct place, and set the time to 10 minutes after 11 o'clock was completed correctly? Yes, 3 word recall: Your nurse or doctor will ask you to remember 3 words. In 5 minutes, they will ask you to repeat them. Patient recalled 3 words Note:63yo male presents for AWV. Last visit 08/23/18 for COPD exacerbation. Pt is interested in quitting smoking. Pt is youngest of four brothers. Yesterday, one of his older brothers moved into his house for hospice care for metastatic lung cancer. Was moved from care facility in [place]. Pt's will help take care of pt's brother besides hospice nurse. In process of making house more handicap accessible - discussed bedside commode, chair in shower, grab bars in bathroom. Would like to help brother get into shower/cleaned properly.<div>Pt notes that he has been a heavy smoker for years. Smoked less when he was younger & working 1/2ppd for 20yrs, but heavier after new job 1-1.5ppd. Estimates about 30pack-year hx. Has Rx for Chantix, but hasn't tried it. does not smoke. Brother with lung cancer still smoking.
<div>
</div><div> Previously:</div><div><span style="font-size: 14px;">Had EGD/colonoscopy on Monday06/30/[address] Márquez GI. Was started on Bentyl </span>10mg<span style="font-size: 14px;"> tid & probiotic (VSL#3) qd. Had six polyps removed & was told he had diverticulosis. Was found to have Emanuel's esophagus & amp; had biopsies taken. Also with hiatal hernia.</span>
</div><div><div>Pt already taking PPI, Protonix 40mg qd for GERD.</div>Here today for refill of hydrocodone.<div>Also would like tx for bilateral great toenails - thickened, yellow, broken, black on right for past 2-3yrs. Has been on oral Lamisil for 3mo - normal LFTs after one month of tx.</div><div>
</div><div><div><span style="font-size: 14px;">Is followed by cardiology, Dr. Montiel - last visit in February 2018. Pt's bp was noted to be high, so Dr. Montiel restarted amlodipine < /span>5mg<span style="font-size: 14px;"> qd in addition to sotalol </span>80mg< span style="font-size: 14px;"> bid and atorvastatin </span>40mg<span style="font-size: 14px;"> qhs.</span>
</div><div>Pt with hx of atrial fibrillation, pacemaker and has chronic anticoagulation after PE in 1993 following hip surgery. Is currently on Xarelto 20mg qd. Sees Dr. Montiel 1-2x/yr. </div><div>Has hx of [place] & CVA in November 2014. No stent [...] moved out of area, then Dr. Antoine.</div><div>
< /div><div>Followed by dermatology & had basal cell carcinoma removed from left forearm on Jun 20, 2017 and another basal cell carcinoma removed from left face (cheek) on Monday, Jul 03 with Moh's surgery. Derm is Dr. Avalos.</div ><div>
</div><div> Hx htn - on medication for past 10yrs. Was on amlodipine, valsartan/hctz & sotalol. Saw regional engagement consultant in February & discontinued amlodipine & valsartan/hctz. Currently only taking the sotalol 80bid, Xarelto 20mg qhs & atorvastatin</div><div>
</div><div>PMHx:</div><div>Hx htn - Currently on sotalol 80mg bid, Xarelto 20mg qhs</div><div>
</div><div> Hx of pacemaker - 2009 for sick sinus syndrome. On sotalol. First PM lasted 8 yr s from 5554-0247. Followed by cardiology, Dr. Chiquita Montiel - has pacemaker. Hx M I in 2014 no CABG or stent.
</div><div>
</div><div>Hx of [place] & CVA (10/19/14) in November 2014. Has [...] suicidal thoughts Physical Exam General Adult Exam (male) Reported By: Patient Constitutional: General Appearance: healthy-appearing, [...]
== END | disposition home or self-care (01) ==
LOC: OR 13:39
PROVIDERS: ATTEND Internal Medicine Gastroenterology
DX: Z09 Encounter for follow-up examination after completed treatment for conditions other than malignant neoplasm (principal); K63.5 Polyp of colon; K62.1 Rectal polyp; K57.30 Diverticulosis of large intestine without perforation or abscess without bleeding; K64.8 Other hemorrhoids; K59.00 Constipation, unspecified; I10 Essential (primary) hypertension; K21.9 Gastro-esophageal reflux disease without esophagitis; I25.10 Atherosclerotic heart disease of native coronary artery without angina pectoris; I48.91 Unspecified atrial fibrillation; F17.210 Nicotine dependence, cigarettes, uncomplicated; Z79.02 Long term (current) use of antithrombotics/antiplatelets; Z98.61 Coronary angioplasty status; Z95.810 Presence of automatic (implantable) cardiac defibrillator; Z86.73 Personal history of transient ischemic attack (TIA), and cerebral infarction without residual deficits
CPT/HCPCS: 45384; 45385; J2250; J2704; J3010

== ENCOUNTER → 2021-08-21 | Day surgery (SDC) | payer BC, MEDICARE ==
[2021-08-17 10:06] LABS: BASOPHILS # (AUTO) 0.1 (0.0-0.1); BASOPHILS % 0.7 % (0.0-1.0); EOSINOPHILS # (AUTO) 0.2 (0.0-0.4); EOSINOPHILS % 2.3 % (0.0-6.0); HEMOGLOBIN 14.4 g/dL (14.0-18.0); LYMPHOCYTES # (AUTO) 1.6 (1.0-3.2); LYMPHOCYTES % 21.6 % (18.0-39.1); MEAN CORPUSCULAR HEMOGLOBIN 32.5 pg (28-32); MEAN CORPUSCULAR HGB CONC 33.5 g/dL (31-35); MEAN CORPUSCULAR VOLUME 97.1 fL (81-99); MONOCYTES # (AUTO) 0.8 (0.2-0.8); MONOCYTES % 10.5 % (4.4-11.3); NEUTROPHILS # (AUTO) 4.9 (2.1-6.9); NEUTROPHILS % 64.8 % (38.7-80.0); PLATELET COUNT 176 x10e3/uL (140-360); RED BLOOD COUNT 4.43 x10e6/uL (4.3-5.7); RED CELL DISTRIBUTION WIDTH 12.7 % (11.7-14.4)
[~2021-08-21] MED LIST changes: +GLUCAGON FOR INJ 1 MG VIAL ONE; -HYOSCYAMINE 0.125 MG TAB ONE; +HYOSCYAMINE SULFATE 0.5 MG/ML INJ ONE; +LIDOCAINE HCL 2% LOCAL INJ 5 ML SDV VIAL INJ ONE; -MIDAZOLAM HCL 5 MG/ML VIAL ONE
[2021-08-21 09:45] VITALS: BP 134/77
[2021-08-21 13:30] LABS: WBC,FECAL (FECAL LACTOFERRIN) NEGATIVE (NEGATIVE)
[2021-08-21 13:54] LABS: C DIFFICILE TOXIN A&B AMP PROB NEGATIVE (NEGATIVE)
[2021-08-25 05:11] LABS: ENDOMYSIAL ANTIBODIES, IGA Negative (Negative)
== END | disposition home or self-care (01) ==
LOC: OR 06:28
PROVIDERS: ATTEND Internal Medicine Gastroenterology
DX: K22.70 Barrett's esophagus without dysplasia (principal); D12.7 Benign neoplasm of rectosigmoid junction; D12.2 Benign neoplasm of ascending colon; D12.4 Benign neoplasm of descending colon; K21.9 Gastro-esophageal reflux disease without esophagitis; F41.9 Anxiety disorder, unspecified; Z72.0 Tobacco use; I10 Essential (primary) hypertension; Z01.810 Encounter for preprocedural cardiovascular examination; Z01.812 Encounter for preprocedural laboratory examination; Z20.822 Contact with and (suspected) exposure to COVID-19; K29.70 Gastritis, unspecified, without bleeding; K44.9 Diaphragmatic hernia without obstruction or gangrene; K57.30 Diverticulosis of large intestine without perforation or abscess without bleeding; K64.8 Other hemorrhoids
CPT/HCPCS: 36415; 43239; 45380; 45385; 82784; 83516; 83630; 83993; 85025; 86256; 87045; 87177; 87328; 87493; 93005; C9113; J1610; J1980; J2001; J2704; J3010; U0002; 45378